=== PATIENT | female | born 1975 | race Caucasian/White ===

== ENCOUNTER → 2017-03-30 | Outpatient (CLI) | payer BC ==
--- NOTE | 2017-03-31 12:44 | RADRPT ---
PROCEDURE: I - 123 thyroid uptake and scan CLINICAL INDICATION: 41 -year-old patient with hyperthyroidism. TECHNIQUE: Following the oral administration of 0.19 mCi of I - 123, thyroid uptake and scan was obt ained. COMPARISON: No prior thyroid scans. FINDINGS: 6 hours radioiodine uptake is 14 % (normal range is 5% - 20%). 24 hours radioiodine uptake is 32 % ( normal range is 7% - 35%). The thyroid gland demonstrates a mildly enlarged thyroid gland (approximately 1.5 x normal size) wit h slightly heterogeneous distribution of radionuclide throughout the thyroid gland. IMPRESSION: 1. Mildly enlarged thyroid gland with slightly heterogeneous distribution of radionuclide. 2. Upper normal radioiodine uptake. RPTAT: HH Signed By: Yvrose Red MD 03/31/2017 12:44:01 PM .Yvrose Red MD, Date Time Electronically viewed and signed by .Yvrose Red MD, on 03/31/2017 12:45 .L/
== END | disposition home or self-care (01) ==
LOC: NUC 09:25
PROVIDERS: ATTEND Internal Medicine
DX: E05.90 Thyrotoxicosis, unspecified without thyrotoxic crisis or storm (principal)
CPT/HCPCS: 78014; A9516